=== PATIENT | male | born 1990 | race African-American/Black ===

== ENCOUNTER 2019-03-30 12:42 | Emergency (ER) | payer SELFPAY ==
[2019-03-30] MEDS ORDERED: Linezolid 600 MG in Premix Bag 1 BAG IV ONE (13:14)
[2019-03-30] MEDS ORDERED: Sodium Chloride 0.9% 10 ML Syringe FLUSH PRN (13:14)
--- NOTE | 2019-03-30 13:15 | EDM.PDOC ---
ED HPI GENERAL MEDICAL PROBLEM - General Chief Complaint: Skin Complaint Stated Complaint: INSECT BITE Time Seen by Provider: 03/30/19 13:10 Source of Information: Reports: Patient History Limitations: Reports: No Limitations - History of Present Illness INITIAL COMMENTS - FREE TEXT/NARRATIVE: 28-year-old male presents to the ED with painful swollen left arm. He was in [facility] for and got back yesterday. Appreciated a burning lesion with some swelling volar aspect of his left wrist for the last 3 days. Over the last 24 hours he began to develop a red streak up the volar aspect of his left arm and no traveling all the way up into his left armpit. He does not feel feverish or chilled. No nausea or vomiting. Describes the pain in his left arm is burning and heavy. He thinks he may been bit by some form of insect volar aspect of his wrist but he states there was no bezoar wasp's in [place] when he was there over . He states it could've been a spider bite from where he was staying in a basement suite. Describe any itch at the site of oozing serous material from his volar wrist. He is up-to-date as far as tetanus toxoid goes. Onset: Gradual Onset Date: 03/28/19 Duration: Day(s):, Getting Worse Location: Reports: Upper Extremity, Left Quality: Reports: Ache (Left forearm wrist with lymphangitis traveling up to the left axilla.), Burning, Throbbing Severity: Moderate Improves with: Reports: None Worsens with: Reports: None Context: Denies: Activity, Exercise, Lifting, Sick Contact, Trauma, Other Associated Symptoms: Reports: No Other Symptoms, Rash. 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: Other (see below) Left Arm Pain Score (Numeric/FACES): 8 - Related Data Allergies Allergy/AdvReac Type Severity Reaction Status Date / Time No Known Allergies Allergy Verified 03/30/19 13:05 Home Meds: Home Meds Sulfamethoxazole/Trimethoprim [Bactrim Ds Tablet] 1 each PO BID #18 tablet 03/30 [Rx] Past Medical History - Past Health History Medical/Surgical History: Denies Medical/Surgical History Social & Family History - Tobacco Use Smoking Status *Q: Current Every Day Smoker Years of Tobacco use: 10 Packs/Tins Daily: 0.2 - Caffeine Use Caffeine Use: Reports: Soda - Living Situation & Occupation Living situation: Reports: Single ED ROS GENERAL - Review of Systems Review Of Systems: See Below Constitutional: Denies: Fever, Chills, Malaise, Weakness, Fatigue, Decreased Appetite, Weight Loss HEENT: Reports: No Symptoms Respiratory: Reports: No Symptoms Cardiovascular: Reports: No Symptoms Endocrine: Reports: No Symptoms GI/Abdominal: Reports: No Symptoms : Reports: No Symptoms Musculoskeletal: Reports: Other (Pain and swelling with lymphangitis left for forearm up to the axilla.) Skin: Reports: Rash (Pharyngitis starting from a skin lesion that is oozing serous material from his volar left wrist radial aspect with lymphangitis traveling all went to his left axilla.) Neurological: Reports: No Symptoms Psychiatric: Reports: No Symptoms Hematologic/Lymphatic: Reports: No Symptoms Immunologic: Reports: No Symptoms ED EXAM, SKIN/RASH Exam: See Below Exam Limited By: No Limitations General Appearance: Alert, WD/WN, No Apparent Distress, Other (Temperatures 36.7. Pulse is 65 and sinus respiratory distress 20 with O2 sats 100% on room air BP 130/89.) Respiratory/Chest: No Respiratory Distress, Lungs Clear, Normal Breath Sounds, Chest Non-Tender Cardiovascular: Normal Peripheral Pulses, Regular Rate, Rhythm, No Edema, No Gallop, No Murmur, No Rub Peripheral Pulses: 3+: Radial (L), Radial (R) Extremities: Other (Examination of the left upper extremity shows a punctate lesion oozing serous material from the radial volar aspect of his distal left forearm. He has significant lymphangitis with it raised red and swollen from this lesion traversing up the arm towards the axilla. Tender to touch. The forearm itself is also swollen particularly the distal third of the forearm. He did not have any significant axillary adenopathy on examination.) Neurological: Alert, Oriented, CN II-XII Intact, Normal Cognition, Normal Gait Psychiatric: Normal Affect, Normal Mood Skin: Warm, Dry, Intact, Other (Infected puncture wound left lower wrist. It appears that this most likely was an insect bite of some kind. He traveled to [facility] over and came home with this lesion. It may well have been a spider bite. There appears to be some whitening and thickening of the skin around a central punctum wound left lower forearm with secondary lymphangitis all the way up the arm to the arm..) Location, Skin: Upper Extremity, Left Course - Vital Signs Last Recorded V/S: Last Vital Signs Temp 36.7 C 03/30/19 13:01 Pulse 65 03/30/19 13:01 Resp 20 03/30/19 13:01 BP 130/89 03/30/19 13:01 Pulse Ox 100 03/30/19 13:01 - Orders/Labs/Meds Orders: Active Orders 24 hr Category Date Time Status Peripheral IV Care [RC] . DIRECTED Care 03/30/19 13:14 Active CULTURE WOUND [RM] Stat Lab 03/30/19 13:47 Ordered Sodium Chloride 0.9% [Saline Flush] Med 03/30/19 13:14 Active 10 ml FLUSH ASDIRECTED PRN Peripheral IV Insertion Adult [OM.PC] Stat Oth 03/30/19 13:14 Ordered Medication Orders Sodium Chloride (Saline Flush) 10 ml FLUSH ASDIRECTED PRN PRN Reason: Keep Vein Open Last Admin: 03/30/19 13:48 Dose: 10 ml Labs: Laboratory Tests 03/30/19 03/30/19 Range/Units 13:20 13:20 WBC 7.96 (4.23-9.07) K/mm3 RBC 5.64 (4.63-6.08) M/mm3 Hgb 15.0 (13.7-17.5) gm/dl Hct 44.8 (40.1-51.0) % MCV 79.4 (79.0-92.2) fl MCH 26.6 (25.7-32.2) pg MCHC 33.5 (32.2-35.5) g/dl RDW Std Deviation 35.2 (35.1-43.9) fL Plt Count 316 (163-337) K/mm3 MPV 8.8 L (9.4-12.3) fl Neut % (Auto) 68.9 H (34.0-67.9) % Lymph % (Auto) 16.2 L (21.8-53.1) % King % (Auto) 10.9 (5.3-12.2) % Eos % (Auto) 3.6 (0.8-7.0) Baso % (Auto) 0.3 (0.1-1.2) % Neut # (Auto) 5.48 H (1.78-5.38) K/mm3 Lymph # (Auto) 1.29 L (1.32-3.57) K/mm3 King # (Auto) 0.87 H (0.30-0.82) K/mm3 Eos # (Auto) 0.29 (0.04-0.54) K/mm3 Baso # (Auto) 0.02 (0.01-0.08) K/mm3 C-Reactive Protein < 0.2 (<1.0) mg/dL Meds: Medications Generic Name Dose Route Start Last Admin Trade Name Freq PRN Reason Stop Dose Admin Sodium Chloride 10 ml 03/30/19 13:14 03/30/19 13:48 Saline Flush FLUSH 10 ml ASDIRECTED PRN Administration Keep Vein Open Discontinued Medications Generic Name Dose Route Start Last Admin Trade Name Freq PRN Reason Stop Dose Admin Linezolid 600 mg/ Premix 300 mls @ 300 mls/hr 03/30/19 13:14 03/30/19 13:50 IV 03/30/19 14:13 300 mls/hr ONETIME ONE Administration Trimethoprim/Sulfamethoxazole 1 tab 03/30/19 13:17 03/30/19 13:50 Septra Ds PO 03/30/19 13:18 1 tab ONETIME ONE Administration - Radiology Interpretation Free Text/Narrative:: 20-year-old male presents to the ED with a infected lesion left volar forearm. This may well been a insect sting that his become secondarily infected it could also represent a puncture wound from something else. At any rate he has lymphangitis significant with forearm swelling and redness distal one third of the forearm and lymphangitis traveling over to the axilla on the left side. He is not showing any signs of systemic signs of illness. Treatment will be a dose of Zyvox 600 mg to cover for MRSA. Currently our MRSA coverage with clindamycin is down to 17%. Cefoxitin is 0. Given Bactrim double strength 1 tablet orally now and will be placed on this medication twice a day for 9 days as an outpatient. - Re-Assessments/Exams Free Text/Narrative Re-Assessment/Exam: 03/30/19 14:03 White count is 7.96 with 69% neutrophils. Hemoglobin 16.0 with hematocrit of 44.8. MCV is 79.4 slightly low. Platelet count normal at 316,000 03/30/19 15:00 she has completed 600 mg of linezolid I Also has a first tablet of Bactrim DS given orally. He will be discharged from the ED on Bactrim double strength twice a day for the next 9 days to clear up infection in the left arm. He is to return to medical care if not markedly improved in 72 hours time Departure - Departure Time of Disposition: 14:58 Disposition: Home, Self-Care 01 Condition: Fair Clinical Impression: Acute lymphangitis of forearm Infected insect bite of left wrist Qualifiers: Encounter type: initial encounter Qualified Code(s): S60.862A - Insect bite ( nonvenomous) of left wrist, initial encounter - Discharge Information *PRESCRIPTION DRUG MONITORING PROGRAM REVIEWED*: Not Applicable *COPY OF PRESCRIPTION DRUG MONITORING REPORT IN PATIENT REINALDO: Not Applicable Prescriptions: Sulfamethoxazole/Trimethoprim [Bactrim Ds Tablet] 1 each PO BID #18 tablet Instructions: Cellulitis, Adult, [id number], Insect Bite, Adult Referrals: PCP,None [Primary Care Provider] - Forms: ED Department Discharge Additional Instructions: Evaluation in the emergency him today in regards to wound infection starting at the left volar wrist. The initial source of the infection is unclear but it does appear to be a possible insect bite such as a spider a significant surrounding swelling. Infection has developed secondarily within the forearm and tracking up the left lymph vessels to the left armpit. Tests do not show any evidence of systemic illness at this point time. No bloodstream infection. He did with initial dose of antibiotic called Zyvox 600 mg in the ED in the initial dose of oral antibiotic Bactrim double strength. He will need to take this oral antibiotic twice daily for the next 9 days to clear up cellulitis and infection in the left arm. He will notice much difference in the next 24 hours but by 48-72 hours there should be a marked improvement in the swelling and redness and pain in the left forearm. Daily cleanse the wound with soap and water and then place topical antibiotic bacitracin or Polysporin on the wound and cover with bandage to keep clean. Return to the ED if not markedly improved in 72 hours time - My Orders Last 24 Hours: My Active Orders 03/30/19 13:14 Peripheral IV Care [RC] . DIRECTED Sodium Chloride 0.9% [Saline Flush] 10 ml FLUSH ASDIRECTED PRN Peripheral IV Insertion Adult [OM.PC] Stat 03/30/19 13:47 CULTURE WOUND [RM] Stat - Assessment/Plan Last 24 Hours: My Active Orders 03/30/19 13:14 Peripheral IV Care [RC] . DIRECTED Sodium Chloride 0.9% [Saline Flush] 10 ml FLUSH ASDIRECTED PRN Peripheral IV Insertion Adult [OM.PC] Stat 03/30/19 13:47 CULTURE WOUND [RM] Stat
[2019-03-30] MEDS ORDERED: Sulfamethoxazole/Trimethoprim 800-160 MG Tab PO ONE (13:17)
== END 2019-03-30 15:32 | disposition home or self-care (01) ==
LOC: JD.ED 12:42
DX: S60.862A Insect bite (nonvenomous) of left wrist, initial encounter (principal); L03.124 Acute lymphangitis of left upper limb; F17.210 Nicotine dependence, cigarettes, uncomplicated; W57.XXXA Bitten or stung by nonvenomous insect and other nonvenomous arthropods, initial encounter
CPT/HCPCS: 36415; 85025; 86140; 87070; 96365; 99283; 99283-25; A9270-GY; J2020

== ENCOUNTER 2022-09-21 07:16 | Emergency (ER) | payer SELFPAY ==
[2022-09-21] MEDS ORDERED: cefTRIAXone 1 GM in Sodium Chloride 0.9% 100 ML IV ONE (07:48)
[2022-09-21] MEDS ORDERED: Azithromycin 250 MG Tab PO ONE (07:50)
[2022-09-21] MEDS ORDERED: methylPREDNISolone Sodium Succinate 125 MG/2 ML SDV IVPUSH ONE (07:50)
== END 2022-09-21 08:40 | disposition home or self-care (01) ==
LOC: JD.ED 07:16
DX: J03.90 Acute tonsillitis, unspecified (principal); Z72.0 Tobacco use; Z20.2 Contact with and (suspected) exposure to infections with a predominantly sexual mode of transmission
CPT/HCPCS: 96365; 96375; 99282; A9270; J0696; J2930; J3490; 99283

== ENCOUNTER 2023-01-31 18:26 | Emergency (ER) | payer SELFPAY ==
[2023-01-31] MEDS ORDERED: Azithromycin 250 MG Tab PO ONE (19:28)
[2023-01-31] MEDS ORDERED: cefTRIAXone 250 MG, Lidocaine 1% 0.9 ML IM ONE ×2 (19:28)
== END 2023-01-31 20:23 | disposition home or self-care (01) ==
LOC: JD.ED 18:26
DX: Z20.2 Contact with and (suspected) exposure to infections with a predominantly sexual mode of transmission (principal); F17.210 Nicotine dependence, cigarettes, uncomplicated
CPT/HCPCS: 96372; 99283; A9270; J0696; 99282; J3490

== ENCOUNTER 2024-01-17 19:01 | Emergency (ER) | payer SELFPAY ==
[2024-01-17 19:55] LABS: APPEARANCE,URINE CLEAR (Clear); BILIRUBIN,URINE NEGATIVE (Negative); COLOR,URINE YELLOW (Yellow); GLUCOSE,URINE NEGATIVE (Negative); KETONES,URINE TRACE (Negative); LEUKOCYTE ESTERASE,URINE NEGATIVE (Negative); NITRITE,URINE NEGATIVE (Negative); OCCULT BLOOD,URINE NEGATIVE (Negative); PROTEIN,URINE NEGATIVE (Negative); UROBILINOGEN,URINE 0.2 (0.2-1.0)
[2024-01-17] MEDS: Doxycycline Monohydrate 100 MG Cap PO ONE (20:02)
[2024-01-17] MEDS: cefTRIAXone 500 MG, Lidocaine 1% 1 ML IM SCH (20:02)
[2024-01-17 21:10] LABS: HIV RAPID SCREEN RLFX COMFIRM NON-REACTIVE (Non-React)
[2024-01-17 21:20] LABS: C. TRACHOMATIS BY PCR NOT DETECTED; N. GONORRHOEAE BY PCR NOT DETECTED
[2024-01-17 21:54] LABS: RAPID PLASMA REAGIN,RPR NON-REACTIVE (NONREACTIVE)
== END 2024-01-17 22:31 | disposition home or self-care (01) ==
LOC: JD.ED 19:01
DX: Z72.51 High risk heterosexual behavior (principal)
CPT/HCPCS: 36415; 81003; 86592; 87449; 87491; 87591; 96372; 99283; A9270; J0696; G0433; J3490